=== PATIENT | female | born 1965 ===

== ENCOUNTER 2016-07-04 12:24 | Emergency (ER) | payer SELFPAY ==
[2016-07-04 12:24] VITALS: BMI 30.2
[2016-07-04 13:05] VITALS: BP 135/83; PULSE 56; RESP 20; TEMP 98.1; O2SAT 100
--- NOTE | 2016-07-04 13:31 | ED PDOC ---
Arrival/HPI - General Historian: Patient - General Chief Complaint: Upper Extremity Problem/Injury Time Seen by Provider: 07/04/16 13:06 - History of Present Illness Narrative History of Present Illness (Text): 07/04/16 13:29 50yo female present with 3days history of right shoulder pain. States took Ibuprofen 800mg with some relieve. Pain is sharp and worse with abduction of arm. Notes history of back injury last year that resolved. 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 Denies weakness, paresthesia, chest pain, SOB. (u,Happiness A) Past Medical History - Provider Review Nursing Documentation Reviewed: Yes - Infectious Disease Hx of Infectious Diseases: None - Cardiac Hx Hypertension: Yes (no meds) - Pulmonary Hx Pneumonia: No - Neurological Hx Neurological Disorder: No - HEENT Hx HEENT Disorder: No - Hematological/Oncological Hx Cirrhosis: No - Integumentary Hx Squamous Cell Carcinoma: No - Musculoskeletal/Rheumatological Hx Musculoskeletal Disorders: Yes Hx Back Pain: Yes - Gastrointestinal Hx Gastrointestinal Disorders: No - Genitourinary/Gynecological Hx Genitourinary Disorders: No - Psychiatric Hx Psychophysiologic Disorder: No Hx Substance Use: No - Surgical History Hx Section: Yes (x 4) - Anesthesia Hx Anesthesia: Yes Hx Anesthesia Reactions: No Hx Malignant Hyperthermia: No Family/Social History - Physician Review Nursing Documentation Reviewed: Yes Family/Social History: Unknown Family HX Smoking Status: Never Smoked Hx Alcohol Use: No Hx Substance Use: No Allergies/Home Meds Allergies/Adverse Reactions: Allergies No Known Allergies Allergy (Verified 12/19/15 10:04) Review of Systems - Physician Review All systems were reviewed & negative as marked: Yes - Review of Systems Constitutional: Normal Eyes: Normal ENT: Normal Respiratory: Normal Cardiovascular: Normal Gastrointestinal: Normal Genitourinary Female: Normal Musculoskeletal: Arthralgias (right shoulder pain) Skin: Normal Neurological: Normal Endocrine: Normal Hemo/Lymphatic: Normal Psychiatric: Normal Physical Exam Vital Signs Reviewed: Yes Temperature: Afebrile Blood Pressure: Normal Pulse: Regular Respiratory Rate: Normal Appearance: Positive for: Well-Appearing, Non-Toxic, Comfortable Pain Distress: None Mental Status: Positive for: Alert and Oriented X 3 - Systems Exam Head: Present: Atraumatic, Normocephalic Pupils: Present: PERRL Extroacular Muscles: Present: EOMI Conjunctiva: Present: Normal Mouth: Present: Moist Mucous Membranes Neck: Present: Normal Range of Motion Respiratory/Chest: Present: Clear to Auscultation, Good Air Exchange. No: Respiratory Distress, Accessory Muscle Use Cardiovascular: Present: Regular Rate and Rhythm, Normal S1, S2. No: Murmurs Abdomen: Present: Normal Bowel Sounds. No: Tenderness, Distention, Peritoneal Signs Back: Present: Normal Inspection Upper Extremity: Present: NORMAL PULSES, Tenderness (Proximal right shoudler), Neurovascularly Intact, Capillary Refill < 2s, Other (Strenght 5/5). No: Cyanosis, Edema, Normal ROM (Limited on abduction of right arm up to 90degree), Swelling, Erythema, Temperature Abnormalties, Deformity Lower Extremity: Present: Normal Inspection. No: Edema Neurological: Present: GCS=15, CN II-XII Intact, Speech Normal Skin: Present: Warm, Dry, Normal Color. No: Rashes Psychiatric: Present: Alert, Oriented x 3, Normal Insight, Normal Concentration Vital Signs Temp Pulse Resp BP Pulse Ox 07/04/16 13:01 98.1 F 56 L 20 135/83 100 Medical Decision Making ED Course and Treatment: I was available for consultation during PA evaluation. The chart reviewed by me , and I agree with disposition. The documented history was done by the physician health service worker. The documented physical exam was done by the physician health service worker. The documented procedures were done by the physician health service worker. (Jake Phillip) 07/04/16 20:11 Right shoulder xray - No acute finding Result was DW the pt. Arm placed on a sling. PT referred to her PMD/ortho. TRT ED for any new or worsening symptoms. (Delgado Sampson) - RAD Interpretation Radiology Orders: 07/04/16 13:06 SHOULDER RIGHT [RAD] Stat - Medication Orders Current Medication Orders: Discontinued Medications Ketorolac Tromethamine (Toradol) 60 mg IM STAT STA Stop: 07/04/16 13:08 Last Admin: 07/04/16 13:47 Dose: 60 mg Disposition/Present on Arrival - Present on Arrival Any Indicators Present on Arrival: No History of DVT/PE: No History of Uncontrolled Diabetes: No Urinary Catheter: No History of Decub. Ulcer: No History Surgical Site Infection Following: None - Disposition Have Diagnosis and Disposition been Completed?: Yes Disposition Time: 13:40 Patient Plan: Discharge - Disposition Diagnosis: Shoulder pain Disposition: HOME/ ROUTINE Condition: STABLE Discharge Instructions (ExitCare): Shoulder Pain (ED) Additional Instructions: Follow up with your doctor/Orthopedist return to ED for any new or worsening symptoms Prescriptions: Naproxen [Naprosyn] 500 mg PO BID #20 tablet traMADol [Ultram] 50 mg PO Q6 #10 tab Referrals: Solomon Stover MD [Primary Care Provider] - Follow up with primary
--- NOTE | 2016-07-04 13:41 | RAD ---
PROCEDURE: Radiographs of the Right Shoulder HISTORY: shoulder pain COMPARISON: None available. FINDINGS: BONES: No acute displaced fracture. The distal clavicle and underlying ribs appear intact. JOINTS: No acute dislocation. Mild glenohumeral joint space narrowing. SOFT TISSUES: Soft tissues appear unremarkable. No evidence of radiopaque foreign body. IMPRESSION: No acute displaced fracture or dislocation evident. If symptoms persist or if there is continued clinical concern, x-ray follow-up in 7-10 days should be considered.
== END 2016-07-04 13:57 | disposition home or self-care (01) ==
LOC: ED 12:24
DX: M25.511 Pain in right shoulder (principal)
CPT/HCPCS: 29240; 73030; 96372; 99284; J1885